=== PATIENT | male | born 1965 | race Hispanic/Latino ===

== ENCOUNTER 2019-05-26 18:02 | Emergency (ER) | payer OTHER ==
[2019-05-26 18:33] LABS: BASOPHILS % (AUTO) 0.7 % (0.0-5.0); EOSINOPHILS % (AUTO) 2.3 % (0.0-8.0); HEMATOCRIT 37.6 % (42-54); LYMPHOCYTES % (AUTO) 23.2 % (21.0-51.0); MEAN CORPUSCULAR HEMOGLOBIN 27.3 pg (27.0-33.0); MEAN CORPUSCULAR HGB CONC 32.9 g/dL (32.0-36.0); MEAN CORPUSCULAR VOLUME 82.9 fL (79-99); MONOCYTES % (AUTO) 6.7 % (3.0-13.0); NEUTROPHILS % (AUTO) 67.1 % (40.0-77.0); NUCLEATED RED BLOOD CELLS 0.1 % (0.0-0.19); PLATELET COUNT (AUTO) 157 K/uL (130-400); RED BLOOD CELL COUNT(AUTO) 4.53 MIL/uL (4.50-6.20); RED CELL DISTRIBUTION WIDTH 15.7 % (11.0-15.5); WHITE BLOOD COUNT (AUTO) 6.6 K/uL (4.8-10.8)
[2019-05-26] MEDS ORDERED: HYOSCYAMINE SULFATE 0.125 MG TAB.SUBL SL ONE (18:38)
[2019-05-26] MEDS ORDERED: ONDANSETRON HCL 4 MG/2 ML VIAL ONE (18:38)
[2019-05-26 18:39] LABS: CARBON DIOXIDE 26 mmol/L (21-32); CHLORIDE 107 mmol/L (101-111); CREATININE 0.9 mg/dL (0.5-1.5); GLOMERULAR FILTR. RATE CALC 93 mL/min (>60); GLUCOSE,RANDOM 190 mg/dL (70-105); POTASSIUM 3.5 mmol/L (3.5-5.1); SODIUM SERUM 143 mmol/L (136-145); UREA NITROGEN, BLOOD 16 mg/dL (7-18)
[2019-05-26] MEDS ORDERED: FAMOTIDINE/PF 20 MG/2 ML VIAL IV ONE (18:39)
[2019-05-26 18:43] LABS: ALANINE AMINOTRANSFERASE 18 U/L (12-78); ALBUMIN 3.5 g/dL (3.5-5.0); ALCOHOL, BLOOD < 3 mg/dL (0-10); ASPARTATE AMINOTRANSFERASE 15 U/L (10-37); BILIRUBIN,DIRECT 0.1 mg/dL (0.0-0.3); BILIRUBIN,TOTAL 0.4 mg/dL (0.2-1.0); CREATINE KINASE, TOTAL 129 U/L (21-232); LIPASE 133 U/L (114-286); TOTAL PROTEIN, SERUM 6.8 g/dL (6.0-8.3)
[2019-05-26] MEDS ORDERED: SUCRALFATE 1 GM TABLET ONE (19:11)
[2019-05-26 19:12] LABS: B-TYPE NATRIURETIC PEPTIDE 23 pg/mL (0-100)
[2019-05-26 20:02] LABS: APPEARANCE,URINE Clear (CLEAR); BILIRUBIN,URINE Negative (NEGATIVE); COLOR,URINE Dark Yellow (YELLOW); GLUCOSE, URINE (UA) Negative (NEGATIVE); KETONES,URINE Trace mg/dL (NEGATIVE); LEUKOCYTE ESTERASE ,URINE Negative (NEGATIVE); NITRATE,URINE Negative (NEGATIVE); OCCULT BLOOD,URINE Negative (NEGATIVE); PROTEIN,URINE Negative (NEGATIVE)
[2019-05-26 20:16] LABS: CALCIUM OXALATE CRYSTALS,UR Few /LPF (None Seen); SQUAMOUS EPITHELIAL CELL,UR 0-2 /HPF (0-2)
[2019-05-26 20:17] LABS: BACTERIA,URINE Few /HPF (None Seen)
[2019-05-26 20:18] LABS: MUCUS,URINE Moderate LPF (None Seen); WBC,URINE 0-1 /HPF (0-1)
== END 2019-05-26 20:41 | disposition home or self-care (01) ==
LOC: EDH 18:02
DX: R10.13 Epigastric pain (principal); R11.0 Nausea; R68.83 Chills (without fever); Z88.6 Allergy status to analgesic agent
CPT/HCPCS: 36415; 80048; 80076; 81001; 82550; 83690; 83880; 84484; 85025; 93005; 96374; 96375; 99285; G0480; J2405; J3490

== ENCOUNTER 2021-03-01 22:21 | Emergency (ER) | payer OTHER ==
[~2021-03-01] VITALS: Ht 188 cm; Wt 6.8 kg
[2021-03-01 22:41] VITALS: BP 117/78
[2021-03-02] MEDS ORDERED: CLIN300C10 PO (07:01)
[2021-03-02] MEDS ORDERED: MELO7.5T12 PO (07:01)
[2021-03-02] MEDS ORDERED: CEPH500B PO (07:01)
== END 2021-03-02 00:56 | disposition left against medical advice (07) ==
LOC: EDH 22:21
DX: M79.645 Pain in left finger(s) (principal); Z53.21 Procedure and treatment not carried out due to patient leaving prior to being seen by health care provider

== ENCOUNTER 2021-03-02 06:12 | Emergency (ER) | payer OTHER ==
[~2021-03-02] VITALS: Ht 188 cm; Wt 108.9 kg
[2021-03-02 06:14] VITALS: BP 179/89
[2021-03-02] MEDS ORDERED: LIDOCAINE HCL-MPF 1% 2ML VIAL ONE (06:47)
[2021-03-02] MEDS ORDERED: KETOROLAC 60 MG VIAL (30MG/ML) IM ONE (07:00)
[2021-03-02] MEDS ORDERED: CEFTRIAXONE 1G VIAL IM ONE (07:00)
[2021-03-02] MEDS ORDERED: CLINDAMYCIN 150 MG CAP PO ONE (07:00)
[2021-03-02] MEDS ORDERED: MELO7.5T12 PO (07:01)
[2021-03-02] MEDS ORDERED: CLIN300C10 PO (07:01)
[2021-03-02] MEDS ORDERED: CEPH500B PO (07:01)
[2021-03-02 07:04] VITALS: BP 174/86
== END 2021-03-02 07:12 | disposition home or self-care (01) ==
LOC: EDH 06:12
DX: L03.012 Cellulitis of left finger (principal); Z88.6 Allergy status to analgesic agent; Z79.1 Long term (current) use of non-steroidal anti-inflammatories (NSAID)
CPT/HCPCS: 96372 ×2; 99284; J0696; J1885; J3490

== ENCOUNTER 2022-05-16 10:40 | Emergency (ER) | payer OTHER ==
[~2022-05-16] VITALS: Ht 188 cm; Wt 113.4 kg
[~2022-05-16 10:40] MED LIST: CEPH500B PO; CLIN-141 PO; MELO7.5T12 PO
[2022-05-16 10:42] VITALS: BP 188/82
[2022-05-16 11:15] LABS: APPEARANCE,URINE CLEAR (CLEAR); BILIRUBIN,URINE NEGATIVE (NEGATIVE); COLOR,URINE YELLOW (YELLOW); GLUCOSE, URINE (UA) NEGATIVE (NEGATIVE); KETONES,URINE NEGATIVE (NEGATIVE); LEUKOCYTE ESTERASE ,URINE NEGATIVE Leu/uL (NEGATIVE); NITRATE,URINE NEGATIVE (NEGATIVE); OCCULT BLOOD,URINE NEGATIVE (NEGATIVE); PROTEIN,URINE 10 mg/dL (NEGATIVE); UROBILINOGEN,URINE 0.2 mg/dL (0.2-1.0)
[2022-05-16 11:17] LABS: BACTERIA,URINE RARE /HPF (None Seen); MUCUS,URINE RARE LPF (None Seen); RBC,URINE 0-1 /HPF (0-1); SQUAMOUS EPITHELIAL CELL,UR RARE /HPF (0-2)
[2022-05-16 11:23] LABS: BASOPHILS % (AUTO) 0.6 % (0.0-5.0); EOSINOPHILS % (AUTO) 2.3 % (0.0-8.0); HEMATOCRIT 44.3 % (42-54); LYMPHOCYTES % (AUTO) 24.6 % (21.0-51.0); MEAN CORPUSCULAR HEMOGLOBIN 30.3 pg (27.0-33.0); MEAN CORPUSCULAR HGB CONC 34.3 g/dL (32.0-36.0); MEAN CORPUSCULAR VOLUME 88.4 fL (79-99); MONOCYTES % (AUTO) 6.1 % (3.0-13.0); NEUTROPHILS % (AUTO) 66.3 % (40.0-77.0); PLATELET COUNT (AUTO) 180 K/uL (130-400); RED BLOOD CELL COUNT(AUTO) 5.01 MIL/uL (4.50-6.20); RED CELL DISTRIBUTION WIDTH 14.6 % (11.0-15.5)
[2022-05-16 11:34] LABS: CREATININE 1.1 mg/dL (0.5-1.5)
[2022-05-16 11:39] LABS: ALBUMIN 3.9 g/dL (3.5-5.0); TOTAL PROTEIN, SERUM 7.9 g/dL (6.0-8.3)
[2022-05-16] MEDS ORDERED: OMEP40CA21 PO (12:37)
== END 2022-05-16 12:54 | disposition home or self-care (01) ==
LOC: EDH 10:40
DX: K80.50 Calculus of bile duct without cholangitis or cholecystitis without obstruction (principal); Z88.6 Allergy status to analgesic agent; Z79.899 Other long term (current) drug therapy; Z98.890 Other specified postprocedural states
CPT/HCPCS: 36415; 71045; 76705; 80053; 81001; 82150; 82550; 83690; 83880; 84484; 85025; 93005

== ENCOUNTER 2024-01-23 10:54 | Emergency (ER) | payer OTHER ==
[~2024-01-23] VITALS: Ht 188 cm; Wt 108.9 kg
[~2024-01-23 10:54] MED LIST changes: +OMEP40CA21 PO
[2024-01-23 11:56] LABS: BASOPHILS # (AUTO) 0.03 K/uL (0.00-0.20); BASOPHILS % (AUTO) 0.3 % (0.0-5.0); EOSINOPHILS # (AUTO) 0.02 K/uL (0.00-0.70); EOSINOPHILS % (AUTO) 0.2 % (0.0-8.0); HEMATOCRIT 42.5 % (42-54); IMMATURE GRANULOCYTE ABSOLUTE 0.03 K/uL (0-1); LYMPHOCYTES # (AUTO) 1.3 K/uL (1.0-4.8); LYMPHOCYTES % (AUTO) 13.3 % (21.0-51.0); MEAN CORPUSCULAR HEMOGLOBIN 29.7 pg (27.0-33.0); MEAN CORPUSCULAR HGB CONC 34.6 g/dL (32.0-36.0); MEAN CORPUSCULAR VOLUME 85.9 fL (79-99); MONOCYTES # (AUTO) 0.6 K/uL (0.1-1.0); MONOCYTES % (AUTO) 6.1 % (3.0-13.0); NEUTROPHILS # (AUTO) 7.6 K/uL (1.8-7.7); NEUTROPHILS % (AUTO) 79.8 % (40.0-77.0); PLATELET COUNT (AUTO) 93 K/uL (130-400); RED BLOOD CELL COUNT(AUTO) 4.95 MIL/uL (4.50-6.20); RED CELL DISTRIBUTION WIDTH 15.4 % (11.0-15.5); WHITE BLOOD COUNT (AUTO) 9.5 K/uL (4.8-10.8)
[2024-01-23 11:56] LABS: APPEARANCE,URINE CLOUDY (CLEAR); BILIRUBIN,URINE 0.5 mg/dL (NEGATIVE); COLOR,URINE YELLOW (YELLOW); GLUCOSE, URINE (UA) NEGATIVE (NEGATIVE); KETONES,URINE 20 mg/dL (NEGATIVE); LEUKOCYTE ESTERASE ,URINE NEGATIVE Leu/uL (NEGATIVE); NITRATE,URINE NEGATIVE (NEGATIVE); PH,URINE 5.5 (5.0-8.0); PROTEIN,URINE 50 mg/dL (NEGATIVE)
[2024-01-23 11:57] LABS: ADD UA MICROSCOPIC YES
[2024-01-23 12:03] LABS: CARBON DIOXIDE 24 mmol/L (21-32); CHLORIDE 101 mmol/L (101-111); CREATININE 1.1 mg/dL (0.5-1.3); GLOMERULAR FILTR. RATE CALC 77 mL/min (>90); GLUCOSE,RANDOM 98 mg/dL (70-105); SODIUM SERUM 139 mmol/L (136-145); UREA NITROGEN, BLOOD 10 mg/dL (7-18)
[2024-01-23 12:03] LABS: MUCUS,URINE FEW LPF (None Seen)
[2024-01-23 12:07] LABS: ALANINE AMINOTRANSFERASE 49 U/L (12-78); ALCOHOL, BLOOD < 3 mg/dL (0-10); ASPARTATE AMINOTRANSFERASE 83 U/L (10-37); BILIRUBIN,TOTAL 2.1 mg/dL (0.2-1.0); TOTAL PROTEIN, SERUM 7.8 g/dL (6.0-8.3)
[2024-01-23 12:21] LABS: ACETAMINOPHEN < 1 mcg/mL (10-29); SALICYLATE < 2.8 mg/dL (2.8-20.0)
[2024-01-23 12:34] LABS: AMPHET/METH SCREEN,URINE NEGATIVE (NEGATIVE); BARBITURATE SCREEN, URINE NEGATIVE (NEGATIVE); BENZODIAZEPINES SCREEN,URINE NEGATIVE (NEGATIVE); CANNABINOID SCREEN,URINE NEGATIVE (NEGATIVE); COCAINE SCREEN,URINE NEGATIVE (NEGATIVE); OPIATE SCREEN,URINE NEGATIVE (NEGATIVE); PHENCYCLIDINE SCREEN,URINE NEGATIVE (NEGATIVE)
[2024-01-23] MEDS ORDERED: HYDR50CA50 PO (12:42)
[2024-01-23 13:22] VITALS: BP 140/72; PULSE 78; RESP 16; O2SAT 99
== END 2024-01-23 13:32 | disposition home or self-care (01) ==
LOC: EDH 10:54
DX: F10.10 Alcohol abuse, uncomplicated (principal); K76.0 Fatty (change of) liver, not elsewhere classified; Z88.8 Allergy status to other drugs, medicaments and biological substances; Z79.899 Other long term (current) drug therapy; Z90.89 Acquired absence of other organs; Z98.890 Other specified postprocedural states
CPT/HCPCS: 99283; 80053; 80305; 85025; 81001; 36415; G0481

== ENCOUNTER 2024-10-28 16:36 | Emergency (ER) | payer OTHER ==
[~2024-10-28] VITALS: Ht 188 cm; Wt 110.7 kg
[~2024-10-28 16:36] MED LIST changes: +HYDR50CA50 PO
--- NOTE | 2024-10-28 17:20 | EKG ---
[facility] Test Date: 2024-10-28 Test Time: 17:17:16 Pat Name: DARIN CHAU Department: ED Room: Gender: M [employer]: [id number] : [id number] Requested By: EVELIA GONZALEZ Order Number: [id number] Reading MD: Brandon Bailey Measurements Intervals [place] Rate: 81 P: 37 IA: 167 QRS: 43 QRSD: 99 T: 85 QT: 405 QTc: 470 Interpretive Statements Sinus rhythm Compared to ECG 05/16/2022 11:06:04 No significant changes Electronically Signed On 10-29-2024 07:17:35 CDT by Brandon Bailey Please click the below link to view image of tracing.
[2024-10-28 17:22] LABS: APPEARANCE,URINE CLEAR (CLEAR); BILIRUBIN,URINE NEGATIVE (NEGATIVE); COLOR,URINE COLORLESS (YELLOW); GLUCOSE, URINE (UA) NEGATIVE (NEGATIVE); KETONES,URINE NEGATIVE (NEGATIVE); LEUKOCYTE ESTERASE ,URINE NEGATIVE Leu/uL (NEGATIVE); NITRATE,URINE NEGATIVE (NEGATIVE); PH,URINE 5.5 (5.0-8.0); PROTEIN,URINE NEGATIVE (NEGATIVE); UROBILINOGEN,URINE 0.2 mg/dL (0.2-1.0)
[2024-10-28 17:22] LABS: BASOPHILS # (AUTO) 0.02 K/uL (0.00-0.20); BASOPHILS % (AUTO) 0.2 % (0.0-5.0); HEMATOCRIT 41.8 % (42-54); IMMATURE GRANULOCYTE ABSOLUTE 0.04 K/uL (0-1); LYMPHOCYTES # (AUTO) 2.1 K/uL (1.0-4.8); LYMPHOCYTES % (AUTO) 19.3 % (21.0-51.0); MEAN CORPUSCULAR HEMOGLOBIN 28.9 pg (27.0-33.0); MEAN CORPUSCULAR HGB CONC 34.7 g/dL (32.0-36.0); MEAN CORPUSCULAR VOLUME 83.3 fL (79-99); MONOCYTES # (AUTO) 0.5 K/uL (0.1-1.0); NEUTROPHILS % (AUTO) 75.1 % (40.0-77.0); PLATELET COUNT (AUTO) 131 K/uL (130-400); RED BLOOD CELL COUNT(AUTO) 5.02 MIL/uL (4.50-6.20); RED CELL DISTRIBUTION WIDTH 13.2 % (11.0-15.5); WHITE BLOOD COUNT (AUTO) 10.7 K/uL (4.8-10.8)
[2024-10-28 17:23] LABS: ADD UA MICROSCOPIC YES; RBC,URINE 0-1 /HPF (0-1)
[2024-10-28] MEDS: PANTOPrazole 40 MG/VIAL IVP ONE (17:28)
[2024-10-28] MEDS: ondanSETRON 4MG INJ IVP ONE (17:28)
[2024-10-28] MEDS: LACTATED RINGERS 1000ML 1,000 ML IV ONE (17:28)
[2024-10-28 17:33] LABS: POTASSIUM 4.1 mmol/L (3.5-5.1)
[2024-10-28 17:37] LABS: ALBUMIN 4.2 g/dL (3.5-5.0); BILIRUBIN,TOTAL 1.3 mg/dL (0.2-1.0); TOTAL PROTEIN, SERUM 8.3 g/dL (6.0-8.3)
--- NOTE | 2024-10-28 17:53 | ERN ---
General Chief Complaint: Diarrhea Stated Complaint: BONE PAIN Time Seen by MD: 16:47 Source: patient History of Present Illness Initial Comments PATIENT IS A 58-YEAR-OLD MALE COMING IN TO BE EVALUATED FOR DIARRHEA. PATIENT ALSO STATES THAT HE HAS BEEN HAVING BONE PAIN FOR A MONTH. HE STATES THAT HE RECENTLY STOPPED DRINKING ALCOHOL AND STATES HE WAS HERE FOR FURTHER EVALUATION. Allergies: Coded Allergies: ibuprofen (Unverified Allergy, Unknown, 05/26/19) Home Meds Active Scripts Hydroxyzine Pamoate (Hydroxyzine Pamoate) 50 Mg Capsule, 50 MG PO Q6HPRN PRN for ANXIETY, #30 CAP Prov:MARQUEZ FIERRO NP 01/23/24 Omeprazole (Omeprazole) 40 Mg Capsule.dr, 40 MG PO DAILY, #30 CAP Prov:DASIA GRAY MD 05/16/22 Meloxicam (Mobic) 7.5 Mg Tablet, 7.5 MG PO DAILY, #10 TAB 0 Refills Prov:TYRON MARTINS MD 03/02/21 Cephalexin Monohydrate (Keflex) 500 Mg Cap, 500 MG PO TID for 10 Days, #30 CAP 0 Refills Prov:TYRON MARTINS MD 03/02/21 Clindamycin HCl (Clindamycin HCl) 300 Mg Capsule, 1 CAP PO QID for 10 Days, #40 CAP 0 Refills Prov:TYRON MARTINS MD 03/02/21 Past Medical History Past Medical History: Liver Disease Medical History Other: FATTY LIVER Past Surgical History: Tonsillectomy, Bariatric Surgery Surgical History Other: GASTRIC BYPASS Family History Family History: HTN Social History Social History: ETOH, Negative, Lives with family ROS Dictation CONSTITUTIONAL: NO CHILLS, NO FEVER, NO WEAKNESS, NO DIAPHORESIS, MALAISE. HEAD/FACE: NO SIGNS OF TRAUMA. EENT: NO EYE PAIN, NO BLURRED VISION, NO TEARING, NO DOUBLE VISION, NO EAR PAIN, NO EAR DISCHARGE, NO NOSE PAIN, NO NASAL CONGESTION, NO THROAT PAIN, NO THROAT SWELLING, NO MOUTH PAIN. RESPIRATORY: NO COUGH, NO ORTHOPNEA, NO SOB, NO STRIDOR, NO WHEEZING. CARDIOVASCULAR: NO CHEST PAIN, NO EDEMA, NO PALPITATIONS, NO SYNCOPE. GASTROINTESTINAL/ABDOMINAL: NO ABDOMINAL PAIN, NO CONSTIPATION, NO DIARRHEA, NO NAUSEA, NO VOMITING. GENITOURINARY: NO ABNORMAL DISCHARGE, NO DYSURIA, NO FREQUENT URINATION, NO HEMATURIA. NO COMPLAINTS OF PAIN IN THE GENITALS. MUSCULOSKELETAL: NO BACK PAIN, NO GOUT, NO JOINT PAIN, NO JOINT SWELLING, NO MUSCLE PAIN, NO MUSCLE STIFFNESS, NO NECK PAIN. INTEGUMENTARY: NO CHANGE IN COLOR, NO CHANGE IN HAIR/NAILS, NO DRYNESS, NO LESION, NO LUMPS, NO RASH. NEUROLOGICAL/PSYCH: NO ANXIETY, NOT DEPRESSED, NO EMOTIONAL PROBLEM, NO HEADACHE, NO NUMBNESS, NO PRE-EXISTING DEFICIT, NO HISTORY OF SEIZURES, NO TREMORS, NO WEAKNESS. HEMATOLOGIC/LYMPHATIC: NOT ANEMIC, NO HISTORY OF BLOOD CLOTS, NO APPARENT BLEEDING, NO BRUISING, GLANDS NOT SWOLLEN. ALL SYSTEMS NEGATIVE, EXCEPT NOTED. Physical Exam Physical Exam Dictation VITAL SIGNS: REVIEWED. GENERAL APPEARANCE: ALERT, ORIENTED X3, NO ACUTE DISTRESS, OBESE. HEAD AND FACE: NON-TRAUMATIC. EYES: PERRL, PINK CONJUNCTIVAS, EYELID NO TRAUMA, ANTERIOR CHAMBER CLEAR. EARS: PINNAS INTACT AND NO SIGNS OF TRAUMA OR ERYTHEMA. EAR CANALS CLEAR AND NO DISCHARGE. TMS NO ERYTHEMA. NOSE: NO DISCHARGE, NO BLEEDING. OROPHARYNX: MOUTH NORMAL, TEETH NO CARIES, TONGUE PINK. PHARYNX CLEAR, NO ERYTHEMA. TONSILS NO EXUDATES, NO ABSCESSES NOTED. MUCOUS MEMBRANE MOIST. NECK: SUPPLE, NON-TENDER, NO THYROMEGALY, NO MASSES, NO JVD, NO BRUITS. BREAST: DEFERRED. CHEST: NO TENDERNESS, NO CREPITUS, NO PARADOXICAL MOVEMENT, NO RETRACTIONS. LUNGS: CLEAR, WELL-VENTILATED, SYMMETRIC, NO RALES, NO WHEEZING, NO RHONCHI, NO STRIDOR, GOOD BREATH SOUNDS BILATERALLY. HEART: REGULAR RATE, REGULAR RHYTHM, NO MURMUR, NO GALLOPS. VASCULAR: NO PERIPHERAL EDEMA. ABDOMEN: SOFT, POSITIVE BOWEL SOUNDS, NONDISTENDED, NO GUARDING, NONTENDER, NO REBOUND, NO MASSES NO HEPATOMEGALY, NO SPLENOMEGALY, NO BAXTER'S SIGN, NO HERNIAS. RECTAL: DEFERRED. GENITAL: DEFERRED. NEUROLOGICAL: NORMAL SPEECH, GROSS MOTOR FUNCTION INTACT, GROSS SENSORY FUNCTION INTACT. MUSCULOSKELETAL: NECK NONTENDER, FULL RANGE OF MOTION, BACK NONTENDER, FULL RANGE OF MOTION. EXTREMITIES: NONTENDER, FULL RANGE OF MOTION. SKIN: COLOR PINK, DRY, NO TURGOR, NO RASH, NO LACERATIONS, NO ABRASIONS, NO CONTUSIONS. LYMPHATICS: DEFERRED. Results Laboratory and Microbiology Lab and Micro Result Laboratory Tests Test 10/28/24 17:05 10/28/24 17:09 White Blood Count 10.7 K/uL (4.8-10.8) Red Blood Count 5.02 MIL/uL (4.50-6.20) Hemoglobin 14.5 g/dL (14.0-18.0) Hematocrit 41.8 % (42-54) L Mean Corpuscular Volume 83.3 fL (79-99) Mean Corpuscular Hemoglobin 28.9 pg (27.0-33.0) Mean Corpuscular Hemoglobin Concent 34.7 g/dL (32.0-36.0) Red Cell Distribution Width 13.2 % (11.0-15.5) Platelet Count 131 K/uL (130-400) Mean Platelet Volume 10.3 fL (7.5-10.5) Immature Granulocyte % (Auto) 0.4 % (0-1) Neutrophils (%) (Auto) 75.1 % (40.0-77.0) Lymphocytes (%) (Auto) 19.3 % (21.0-51.0) L Monocytes (%) (Auto) 5.0 % (3.0-13.0) Eosinophils (%) (Auto) 0.0 % (0.0-8.0) Basophils (%) (Auto) 0.2 % (0.0-5.0) Neutrophils # (Auto) 8.0 K/uL (1.8-7.7) H Lymphocytes # (Auto) 2.1 K/uL (1.0-4.8) Monocytes # (Auto) 0.5 K/uL (0.1-1.0) Eosinophils # (Auto) 0.00 K/uL (0.00-0.70) Basophils # (Auto) 0.02 K/uL (0.00-0.20) Absolute Immature Granulocyte (auto 0.04 K/uL (0-1) Nucleated Red Blood Cells 0.0 % (0.0-0.19) Sodium Level 129 mmol/L (136-145) L Potassium Level 4.1 mmol/L (3.5-5.1) Chloride Level 92 mmol/L (101-111) L Carbon Dioxide Level 27 mmol/L (21-32) Blood Urea Nitrogen 9 mg/dL (7-18) Creatinine 1.0 mg/dL (0.5-1.3) Glomerular Filtration Rate Calc 86 mL/min (>90) Random Glucose 90 mg/dL (70-105) Total Calcium 8.9 mg/dL (8.5-10.1) Total Bilirubin 1.3 mg/dL (0.2-1.0) H Aspartate Amino Transf (AST/SGOT) 54 U/L (10-37) H Alanine Aminotransferase (ALT/SGPT) 41 U/L (12-78) Alkaline Phosphatase 121 U/L (50-136) Total Creatine Kinase 265 U/L (21-232) #H Troponin I High Sensitivity 24 ng/L (4-75) Total Protein 8.3 g/dL (6.0-8.3) Albumin 4.2 g/dL (3.5-5.0) Lipase 23 U/L (16-77) Urine Color COLORLESS (YELLOW) Urine Appearance CLEAR (CLEAR) Urine pH 5.5 (5.0-8.0) Urine Specific [place] 1.002 (1.001-1.031) Urine Protein NEGATIVE mg/dL (NEGATIVE) Urine Glucose (UA) NEGATIVE mg/dL (NEGATIVE) Urine Ketones NEGATIVE mg/dL (NEGATIVE) Urine Occult Blood +- (TRACE) (NEGATIVE) H Urine Nitrate NEGATIVE (NEGATIVE) Urine Bilirubin NEGATIVE mg/dL (NEGATIVE) Urine Urobilinogen 0.2 mg/dL (0.2-1.0) Urine Leukocyte Esterase NEGATIVE Cathy/uL Urine RBC 0-1 /HPF (0-1) Urine WBC None /HPF (0-1) Urine Bacteria None /HPF (None Seen) Labs Reviewed?: Yes EKG/XRAY/US/CT/MRI EKG Comment 10/28/2024 TIME 5:17 P.M. VENTRICULAR RATE [address] [place] [address] WAVE ELEVATION OR DEPRESSION MDM MDM: DIFFERENTIAL DIAGNOSIS: GASTROENTERITIS, MUSCLE ACHES, HISTORY OF ALCOHOL ABUSE RATIONALE: TESTS CONSIDERED AND ORDERED SECONDARY TO SHARED DECISION MAKING INCLUDE: PREVIOUS OUTSIDE RECORDS REVIEWED: OLD ER VISITS. RISK OF COMPLICATION AND/OR MORBIDITY OR MORTALITY OF PATIENT MANAGEMENT: NONE MEDICATIONS-PER MEDICATION RECONCILIATION PATIENT IS A 58-YEAR-OLD MALE COMING IN TO BE EVALUATED FOR DIARRHEA. ALONG WITH THIS PATIENT STATES THAT HE HAS BEEN HAVING BONE PAIN FOR ONE MONTH. HE ALSO STATES THAT HE WAS RECENTLY STOPPED CONSUMING ALCOHOL. LABORATORY WORKUP MILD DEHYDRATION OTHERWISE UNREMARKABLE. PATIENT WILL BE DISCHARGED IN STABLE CONDITION WITH A DIAGNOSIS OF DEHYDRATION IN HIS HISTORY OF ALCOHOL ABUSE. ED Course Orders Procedure Category Date Status Time Cbc With Differential LAB 10/28/24 Complete 16:53 Comprehensive LAB 10/28/24 Complete Metabolic Panel 16:53 Troponin I High LAB 10/28/24 Complete Sensitivity 16:53 Urinalysis Profile LAB 10/28/24 Complete 16:53 12 Lead Ekg Tracing- EKG 10/28/24 Complete Technical 16:53 Lactated Ringers PHA 10/28/24 Complete 1000ml (Lactated 17:00 Ondansetron 4mg Inj PHA 10/28/24 Complete (Zofran 4mg Inj) 17:00 Pantoprazole 40mg Inj PHA 10/28/24 Complete (Protonix 40mg Inj 17:00 Creatine Kinase, Total LAB 10/28/24 Complete 16:53 Lipase LAB 10/28/24 Complete 16:53 Febrile Agglutinins LAB 10/28/24 Verified Panel 17:50 Current Medications Medications (Trade) Dose Ordered Sig/P[place]on Route PRN Reason Start Time Stop Time Status Last Admin Dose Admin Lactated Ringer's 1,000 ml @ 0 mls/hr ONCE ONCE IV 10/28/24 17:00 10/28/24 17:01 DC 10/28/24 17:28 Ondansetron HCl (zoFRAN 4MG INJ) 4 mg ONCE ONCE IVP 10/28/24 17:00 10/28/24 17:01 DC 10/28/24 17:28 Pantoprazole Sodium (PROTonix 40MG INJ) 40 mg ONCE ONCE IVP 10/28/24 17:00 10/28/24 17:01 DC 10/28/24 17:28 Vital Signs Date Time Temp Pulse Resp B/P (MAP) Pulse Ox O2 Delivery O2 Flow Rate FiO2 10/28/24 16:46 98.1 83 16 151/90 98 Room Air DX & DISP Disposition: Discharge Departure Impression: Primary Impression: Dehydration Additional Impression: History of alcohol abuse Condition: Stable Additional Instructions: FOLLOW-UP WITH PRIMARY CARE PROVIDER IN 1 TO 2 DAYS. TAKE MEDICATIONS DIRECTED HERE IN THE EMERGENCY ROOM. OKAY TO CONTINUE HOME MEDICATIONS UNLESS OTHERWISE DISCUSSED DURING YOUR VISIT IN THE EMERGENCY ROOM TODAY. RETURN TO YOUR NEAREST EMERGENCY ROOM IF SYMPTOMS WORSEN OR IF THERE IS NO IMPROVEMENT. CALL 911 IF YOU NEED IMMEDIATE ASSISTANCE. TAKE TYLENOL [id number] NEEDED AND IF NO CONTRAINDICATIONS ARE PRESENT. INCREASE ORAL HYDRATION. A WOUND CULTURE OR URINE CULTURE WAS ORDERED HERE IN THE EMERGENCY ROOM DEPARTMENT PLEASE FOLLOW-UP WITH PRIMARY CARE PROVIDER AND ADVISE THEM TO GET REPEAT PORTS FROM OUR FACILITY. IF YOU HAD ANY LANCE WRAP/SPLINTS THAT WERE APPLIED HERE, PLEASE DO NOT REMOVE THEM UNTIL YOU SEE YOUR PRIMARY CARE OR SPECIALTY. REFERRALS: Referrals: DEMARCUS GARDUNO MD (PCP) Time of Disposition: 17:53 EVELIA GONZALEZ MD October 28, 2024 17:53
[2024-10-28 18:04] VITALS: BP 143/89; PULSE 80; RESP 16; TEMP 98.1; O2SAT 98
== END 2024-10-28 18:09 | disposition home or self-care (01) ==
LOC: EDH 16:36
DX: E86.0 Dehydration (principal); Z79.1 Long term (current) use of non-steroidal anti-inflammatories (NSAID); Z79.899 Other long term (current) drug therapy; Z88.6 Allergy status to analgesic agent; Z90.89 Acquired absence of other organs; Z98.84 Bariatric surgery status
CPT/HCPCS: 99284; 96374; 96361; 96375; 82550; 84484; 80053; 83690; 85025; 81001; 36415; 93005; J7120; J2405; J2470